=== PATIENT | male | born 1945 | race Caucasian/White ===

== ENCOUNTER 2016-09-28 21:05 | Emergency (ER) | payer OTHER ==
[~2016-09-28] VITALS: Ht 177.8 cm; Wt 140.7 kg
[~2016-09-28 21:05] MED LIST: ALBUAER2; CRD4; DRV100; FLVHFA110
[2016-09-28 21:07] VITALS: TEMP 36.5; Ht 177.8 cm; Wt 140.7 kg
--- NOTE | 2016-09-28 22:03 | DIAGNOSTIC IMAGING REPORT ---
LEFT KNEE 3 VIEWS CLINICAL HISTORY: Left knee pain. FINDINGS: AP, crosstable lateral, and sunrise views of left knee are obtained. No prior studies are available for comparison at the time of dictation. The skeletal structures are osteopenic. No fracture is seen. There is moderate degenerative joint space narrowing at the patellofemoral articulation. Mild joint space narrowing is seen in the medial and lateral compartments. There are small marginal osteophytes and patellar enthesophytes. Chondrocalcinosis is noted in the medial and lateral compartments. There is no large joint effusion. The overlying soft tissues are normal as. Numerous superficial venous varicosities are identified. IMPRESSION: 1. No acute bony abnormality is identified. 2. Osteopenia with chondrocalcinosis and arthritic change as above. 3. Numerous superficial venous varicosities are identified. Electronically signed by: Oniel Atkinson M.D. 09/28/2016 10:02 PM Dictated Date/Time: 09/28/2016 10:00 PM
[2016-09-28] MEDS ORDERED: MOME200A INH (22:05)
[2016-09-28] MEDS ORDERED: FLUT0.15 NAE (22:05)
[2016-09-28] MEDS ORDERED: ALBUAER INH (22:05)
[2016-09-28] MEDS ORDERED: FINA5TAB PO (22:05)
[2016-09-28] MEDS ORDERED: MONT1TAB3 PO (22:05)
[2016-09-28 22:11] LABS: BUN/CREATININE RATIO 16.5 (10-20); CREATININE 0.81 mg/dl (0.60-1.40); POTASSIUM 3.8 mmol/L (3.5-5.1)
[2016-09-28 22:13] LABS: BASO % 0.5 %; BASO ABS # 0.03 K/uL (0-0.2); COMPLETE YES; EOS % 4.9 %; HEMATOCRIT 41.4 % (42-52); IG% 0.2 %; LYMPH ABS # 1.82 K/uL (1.2-3.4); MEAN CORPUSCULAR HEMOGLOBIN 30.2 pg (25-34); MEAN CORPUSCULAR HGB CONC 32.9 g/dl (32-36); MEAN PLATELET VOLUME 10.2 fL (7.4-10.4); MONO % 8.7 %; NEUT % 54.7 %; PLATELET COUNT 152 K/uL (130-400); WHITE BLOOD COUNT 5.88 K/uL (4.8-10.8)
[2016-09-28 22:21] LABS: CALCIUM 8.6 mg/dl (8.5-10.1)
--- NOTE | 2016-09-28 22:30 | DIAGNOSTIC IMAGING REPORT ---
ADDENDUM ULTRASOUND BILATERAL LOWER EXTREMITY VENOUS CLINICAL HISTORY: Lower extremity edema. COMPARISON STUDY: No priors. TECHNIQUE: Real-time, grayscale, and color Doppler sonography of the deep veins of the right and left lower extremity was performed from the inguinal crease to the calf. Compression and augmentation were utilized. FINDINGS: There is no sonographic evidence of deep venous thrombosis identified in the right or left lower extremity. The common femoral, superficial femoral, and popliteal veins are patent and normally compressible bilaterally. The greater saphenous vein and the profunda femoris vein at the junction with the common femoral vein are clear in both legs. The visualized calf veins are patent bilaterally. IMPRESSION: There is no sonographic evidence of deep venous thrombosis identified in the right or left lower extremity. Electronically signed by: Oniel Atkinson M.D. 09/28/2016 10:54 PM Dictated Date/Time: 09/28/2016 10:54 PM ORIGINAL REPORT ULTRASOUND LEFT LOWER EXTREMITY VENOUS CLINICAL HISTORY: Lower extremity edema. COMPARISON STUDY: No priors. TECHNIQUE: Real-time, grayscale, and color Doppler sonography of the deep veins of the left lower extremity was performed from the inguinal crease to the calf. Compression and augmentation were utilized. FINDINGS: There is no sonographic evidence of deep venous thrombosis identified in the left lower extremity. The common femoral, superficial femoral, and popliteal veins are patent and normally compressible. The greater saphenous vein and the profunda femoris vein at the junction with the common femoral vein are clear. The visualized calf veins are patent. IMPRESSION: There is no sonographic evidence of deep venous thrombosis identified in the left lower extremity. Electronically signed by: Oniel Atkinson M.D. 09/28/2016 10:29 PM Dictated Date/Time: 09/28/2016 10:29 PM
[2016-09-28 22:35] VITALS: BP 150/60; PULSE 72; O2SAT 95
--- NOTE | 2016-09-28 23:03 | EMERGENCY ROOM VISIT NOTE ---
ED Visit Note First contact with patient: 21:21 This Patient was discussed with the physician health care assistant, ALIS Calzada. The pertinent historical and physical exam findings were confirmed. I agree with the studies ordered and with the interpretations of these studies. I agree with the disposition and care plan.
--- NOTE | 2016-09-29 03:26 | EMERGENCY ROOM VISIT NOTE ---
History First contact with patient: 21:21 Chief Complaint: SWELLING TO EXTREMITY Stated Complaint: B/L LEG SWELLING AND RED SPOTS History of Present Illness The patient is a 71 year old male who presents to the Emergency Room with complaints of left knee pain with bilateral calf pain and redness for the past several days that is steadily getting worse. Patient as had phlebitis in the past and symptoms feel similar. 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 Patient had knee pain for quite some time. No fall. No trauma. He discuss pain as aching, ranging in severity 4-10. Nothing makes it better or worse. Patient denies chest pain , dyspnea, fever, chills, numbness, tingling, abdominal pain or any other medical complaints. Patient does not smoke. No prior DVT. Past Medical/Surgical History Cholecystectomy, asthma, thyroid disorder, BPH Social History Smoking Status: Never Smoker Smokeless Tobacco Use: No Alcohol Use: none Drug Use: none Marital Status: Housing Status: lives with family Occupation Status: employed Current/Historical Medications Scheduled Finasteride (Proscar), 5 MG PO DAILY Fluticasone Propionate (Nasal) (Flonase Allergy Relief), 2 SPRAYS PADMINI DAILY Montelukast Sodium (Singulair), 10 MG PO DAILY Scheduled PRN Albuterol Sulfate (Proventil Hfa), 2 PUFF INH Q4 PRN for SOB/Wheezing Mometasone Furoate-Formoterol (Dulera 200/5 Mcg), 2 AER INH BID PRN for SOB/ Wheezing Allergies Coded Allergies: No Known Allergies (Verified Allergy, Unknown, 05/02/06) Physical Exam Vital Signs Date Time Temp Pulse Resp B/P Pulse Ox O2 Delivery O2 Flow Rate FiO2 09/28/16 23:05 09/28/16 22:35 72 18 150/60 95 Room Air 09/28/16 21:37 160/64 09/28/16 21:07 36.5 85 18 189/83 94 Room Air Pain Rating (0-10): 0 Physical Exam VITALS: Vitals are noted on the nurse's note and reviewed by myself. Vital signs hypertensive GENERAL: Pleasant male, in no acute distress, nondiaphoretic, well-developed well-nourished. SKIN: The skin was without rashes, or bruising. There is no tenting of the skin. Capillary reflex less than 2 seconds. HEAD: Normocephalic atraumatic. EARS: External auditory canals clear, tympanic membranes pearly simpson without erythema or effusion bilaterally. EYES: Pupils equal round and reactive to light and accommodation. Conjunctivae without injection, sclerae without icterus. Extraocular movements intact. NOSE: Patent, turbinates without inflammation or discharge. MOUTH: Mucous membranes moist. Pharynx without erythema or exudate. Uvula midline. Airway patent. Tongue does not deviate. NECK: Supple without nuchal rigidity. No lymphadenopathy. No thyromegaly. Cervical spine is nontender. No JVD. HEART: Regular rate and rhythm LUNGS: Clear to auscultation bilaterally without wheezes, rales or rhonchi. No dullness to percussion. No retractions or accessory muscle use. ABDOMEN: Positive bowel sounds x 4. Normal tympanic percussion. Soft, nontender, without masses or organomegaly. Arora sign negative. No guarding or rebound tenderness. MUSCULOSKELETAL: No muscle atrophy, noted. Left knee full range of motion with minimal discomfort, negative La's, negative drawers. Medial aspects of both calfs with phlebitis presents with negative Homans sign. Pedal pulses + 2 equal present bilaterally. NEURO: Patient was alert and oriented to person place and time. Normal sensation to light and sharp touch. No focal neurological deficits. Medical Decision & Procedures Laboratory Results 09/28/16 21:45 Red Blood Count 4.50, Mean Corpuscular Volume 92.0, Mean Corpuscular Hemoglobin 30.2, Mean Corpuscular Hemoglobin Concent 32.9, Mean Platelet Volume 10.2, Neutrophils (%) (Auto) 54.7, Lymphocytes (%) (Auto) 31.0, Monocytes (%) (Auto) 8.7, Eosinophils (%) (Auto) 4.9, Basophils (%) (Auto) 0.5, Neutrophils # (Auto) 3.22, Lymphocytes # (Auto) 1.82, Monocytes # (Auto) 0.51, Eosinophils # (Auto) 0.29, Basophils # (Auto) 0.03 09/28/16 21:45 Test 09/28/16 21:45 White Blood Count 5.88 K/uL (4.8-10.8) Red Blood Count 4.50 M/uL (4.7-6.1) Hemoglobin 13.6 g/dL (14.0-18.0) Hematocrit 41.4 % (42-52) Mean Corpuscular Volume 92.0 fL (80-100) Mean Corpuscular Hemoglobin 30.2 pg (25-34) Mean Corpuscular Hemoglobin Concent 32.9 g/dl (32-36) Platelet Count 152 K/uL (130-400) Mean Platelet Volume 10.2 fL (7.4-10.4) Neutrophils (%) (Auto) 54.7 % Lymphocytes (%) (Auto) 31.0 % Monocytes (%) (Auto) 8.7 % Eosinophils (%) (Auto) 4.9 % Basophils (%) (Auto) 0.5 % Neutrophils # (Auto) 3.22 K/uL (1.4-6.5) Lymphocytes # (Auto) 1.82 K/uL (1.2-3.4) Monocytes # (Auto) 0.51 K/uL (0.11-0.59) Eosinophils # (Auto) 0.29 K/uL (0-0.5) Basophils # (Auto) 0.03 K/uL (0-0.2) RDW Standard Deviation 46.0 fL (36.4-46.3) RDW Coefficient of Variation 13.7 % (11.5-14.5) Immature Granulocyte % (Auto) 0.2 % Immature Granulocyte # (Auto) 0.01 K/uL (0.00-0.02) Anion Gap 5.0 mmol/L (3-11) Est Creatinine Clear Calc Drug Dose 121.8 ml/min Estimated GFR () 105.1 Estimated GFR (Non- 90.7 BUN/Creatinine Ratio 16.5 (10-20) Calcium Level 8.6 mg/dl (8.5-10.1) ED Course Prior records reviewed and summarized above. Triage Nursing notes reviewed. Additional history obtained from the family. The patient's history was concerning for swelling and pain in the leg. Differential diagnosis: Etiologies such as DVT, musculoskeletal, infection, joint effusion, trauma, lymphedema, idiopathic, CHF, as well as others were entertained.. Physical examination: The physical examination revealed no signs of infection. Neurovascularly intact. ER treatment provided: SPENCER pal. Patient declined medication On reassessment the patient felt better. Diagnostics interpreted by me: The labs revealed no worrisome leukocytosis or electrolyte abnormality besides mild hyperglycemia without DKA Imaging studies: LEFT KNEE 3 VIEWS CLINICAL HISTORY: Left knee pain. FINDINGS: AP, crosstable lateral, and sunrise views of left knee are obtained. No prior studies are available for comparison at the time of dictation. The skeletal structures are osteopenic. No fracture is seen. There is moderate degenerative joint space narrowing at the patellofemoral articulation. Mild joint space narrowing is seen in the medial and lateral compartments. There are small marginal osteophytes and patellar enthesophytes. Chondrocalcinosis is noted in the medial and lateral compartments. There is no large joint effusion. The overlying soft tissues are normal as. Numerous superficial venous varicosities are identified. IMPRESSION: 1. No acute bony abnormality is identified. 2. Osteopenia with chondrocalcinosis and arthritic change as above. 3. Numerous superficial venous varicosities are identified. Exam was negative for DVT per radiology This appears to be consistent with phlebitis. Patient was fitted with SPENCER hose and advised to wear them. He was advised to follow-up family care in a few days or here in the ER sooner for severe pain, chest pain, dyspnea, numbness, tingling, worsening signs or symptoms or as needed. Patient had ongoing knee pain for quite some time. He is advised to follow-up with orthopedics or his family care doctor. By the evaluation outlined above emergent etiologies such as DVT, septic joint, trauma, infection, CHF, as well as others were deemed relatively unlikely. He was neurovascularly and neurologically intact. He was well-appearing. The pt informed about the findings as listed above. All questions were answered and pleased with the treatment. Return instructions were outlined and the patient was discharged in stable condition. Case reviewed with my attending Referral: The patient was referred back to their primary care physician for follow-up in 2 to 3 days for a recheck of the current condition. 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 Ibuprofen(Motrin, Advil) may be used for fever or pain. Use 600mg every six hours as needed. Take with food. Avoid using more than 2400mg in a 24 hour period. Do not use 2400mg per day for more than three consecutive days without physician direction. Prolonged inappropriate use can lead to stomach upset or ulcers. (AND/OR) Acetaminophen(Tylenol) may be used for fever or pain. Use 1000mg every six hours as needed. Avoid using more than 3000mg in a 24 hour period. Rest and drink plenty of fluids as tolerated. Continue current medications. Avoid strenuous activities and anything that worsens your pain. Resume normal activities once your symptoms resolve. Return to the ER immediately for worsening or persistent leg pain, abdominal pain, vomiting, fevers, chest pains, difficulty breathing, worsening of your condition, or as needed. Follow up with your primary physician in 2-3 days for a recheck of your current condition. Problem Qualifiers
[2017-02-17] MEDS ORDERED: CLR10 PO (14:43)
== END 2016-09-28 23:05 | disposition home or self-care (01) ==
LOC: C.EDB 21:06 → C.EDA 23:05
DX: I80.3 Phlebitis and thrombophlebitis of lower extremities, unspecified (principal); M08.462 Pauciarticular juvenile rheumatoid arthritis, left knee; J45.909 Unspecified asthma, uncomplicated; E07.9 Disorder of thyroid, unspecified; N40.0 Benign prostatic hyperplasia without lower urinary tract symptoms; R60.0 Localized edema

== ENCOUNTER → 2016-11-26 | Outpatient (CLI) | payer OTHER ==
[~2016-11-26] MED LIST changes: +ALBUAER INH; -ALBUAER2; +CLR10 PO; -CRD4; -DRV100; +FINA5TAB PO; +FLUT0.15 NAE; -FLVHFA110; +MOME200A INH; +MONT1TAB3 PO; +NAPR1TAB9 PO; +OXYC-57 PO
--- NOTE | 2016-11-26 13:42 | DIAGNOSTIC IMAGING REPORT ---
LEFT HIP INJECTION UNDER FLUOROSCOPIC GUIDANCE CLINICAL HISTORY: Left hip pain. Degenerative joint disease. Steroid injection. PROCEDURE: The risks, benefits, and alternatives to the procedure were discussed with the patient. Written informed consent was obtained. The patient was placed supine on the fluoroscopy table, and a left hip injection was performed under fluoroscopic guidance. The area was prepped and draped in the usual sterile fashion. The skin and soft tissues anesthetized with local 1% lidocaine. The left hip joint was accessed utilizing a 22-gauge needle, and intra-articular positioning was confirmed by injecting a small volume of Optiray 300. The prescribed dosage of 2 cc of betamethasone and 8 cc of 0.5% bupivacaine was injected into the joint space. The procedure was well tolerated and without immediate complication. FLUOROSCOPY TIME: 8 seconds. IMPRESSION: Successful steroid injection of the left hip under fluoroscopic guidance. Electronically signed by: Oniel Atkinson M.D. 11/26/2016 1:40 PM Dictated Date/Time: 11/26/2016 1:39 PM
== END | disposition home or self-care (01) ==
LOC: C.RADBC 12:32
PROVIDERS: ATTEND Orthopaedic Surgery
DX: M25.9 Joint disorder, unspecified (principal)

== ENCOUNTER → 2017-01-31 | Outpatient (CLI) | payer OTHER ==
--- NOTE | 2017-01-31 11:13 | DIAGNOSTIC IMAGING REPORT ---
LUMBAR SPINE W/O CONTRAST HISTORY: Back pain SPINAL STENOSIS TECHNIQUE: Multiplanar multisequence MRI of the lumbar spine was performed without the use of contrast. COMPARISON: None. FINDINGS: For the purpose of the report the L5-S1 disc space will be located on axial image 3135. Signal characteristics of the vertebral bodies are unremarkable. Bone marrow hemangioma of L1. Moderate degenerative disc change throughout the entire lumbar region. L1-L2: No significant central canal or neural foraminal narrowing. L2-L3: Minimal broad-based disc bulge. Minimal impact anterior thecal sac. L3-L4: Mild broad-based disc bulge. Mild narrowing of the neuroforamina bilaterally. Minimal impact anterior thecal sac. L4-L5: Moderate narrowing of the neuroforamina bilaterally primarily secondary to osteophytic reaction. L5-S1: Findings consistent with a prior laminectomy. Minimal broad-based disc bulge. Minimal narrowing of the neuroforamina bilaterally. IMPRESSION: 1. Findings consistent with a posterior laminectomy and fusion at L5-S1. 2. Mild broad-based disc bulge L3-L4 with mild narrowing of the neuroforamina bilaterally. 3. Moderate osteophytic narrowing of the neuroforamina bilaterally at L4-L5. The above report was generated using voice recognition software. It may contain grammatical, syntax or spelling errors. Electronically signed by: William Almazan M.D. 01/31/2017 11:12 AM Dictated Date/Time: 01/31/2017 11:06 AM
== END | disposition home or self-care (01) ==
LOC: C.MRIBC 10:17
PROVIDERS: ATTEND Orthopaedic Surgery Orthopaedic Surgery of the Spine
DX: M48.06 Spinal stenosis, lumbar region (principal)

== ENCOUNTER 2017-02-24 08:17 | Observation (INO) | payer OTHER ==
[2017-02-17 14:44] VITALS: BMI 44.0
--- NOTE | 2017-02-17 15:14 | PAT Medication Instructions ---
Service Date Feb 17, 2017. Current Home Medication List Albuterol Sulfate (Proventil Hfa), 2 PUFF INH Q4 PRN for SOB/Wheezing Fluticasone Propionate (Nasal) (Flonase Allergy Relief), 2 SPRAYS PADMINI DAILY Loratadine (Claritin), 10 MG PO DAILY Mometasone Furoate-Formoterol (Dulera 200/5 Mcg), 2 AER INH BID PRN for SOB/ Wheezing Medication Instructions For Your Scheduled Surgery - Hold the following medications the morning of surgery: Loratadine (Claritin), 10 MG PO DAILY - Take the following medications the morning of surgery: Mometasone Furoate-Formoterol (Dulera 200/5 Mcg), 2 AER INH BID PRN for SOB/ Wheezing (if needed) Albuterol Sulfate (Proventil Hfa), 2 PUFF INH Q4 PRN for SOB/Wheezing (if needed , AND BRING WITH YOU THE MORNING OF THE SURGERY) Fluticasone Propionate (Nasal) (Flonase Allergy Relief), 2 SPRAYS PADMINI DAILY - Take the following medications as scheduled the night before surgery: Mometasone Furoate-Formoterol (Dulera 200/5 Mcg), 2 AER INH BID PRN for SOB/ Wheezing Albuterol Sulfate (Proventil Hfa), 2 PUFF INH Q4 PRN for SOB/Wheezing If you have any questions please call us at [phone] or [phone] or [phone]
[2017-02-17 16:07] LABS: BASO % 0.5 %; BASO ABS # 0.03 K/uL (0-0.2); COMPLETE YES; EOS % 4.5 %; HEMATOCRIT 42.4 % (42-52); IG% 0.2 %; LYMPH % 33.7 %; LYMPH ABS # 1.86 K/uL (1.2-3.4); MEAN CELL VOLUME 89.5 fL (80-100); MEAN CORPUSCULAR HEMOGLOBIN 29.7 pg (25-34); MEAN CORPUSCULAR HGB CONC 33.3 g/dl (32-36); MEAN PLATELET VOLUME 10.4 fL (7.4-10.4); MONO % 6.3 %; NEUT % 54.8 %; PLATELET COUNT 141 K/uL (130-400); RED BLOOD COUNT 4.74 M/uL (4.7-6.1); WHITE BLOOD COUNT 5.52 K/uL (4.8-10.8)
[2017-02-17 16:14] LABS: BUN/CREATININE RATIO 29.3 (10-20); CALCIUM 8.5 mg/dl (8.5-10.1); CREATININE 0.64 mg/dl (0.60-1.40); POTASSIUM 4.4 mmol/L (3.5-5.1)
[2017-02-17 16:18] LABS: PARTIAL THROMBOPLASTIN RATIO 1.1; PROTHROMBIN TIME (PATIENT) 10.7 SECONDS (9.0-12.0)
[2017-02-17 16:21] LABS: URINE APPEARANCE CLEAR (CLEAR); URINE BILIRUBIN NEG (NEG); URINE COLOR YELLOW; URINE NITRITE NEG (NEG); URINE SPECIFIC GRAVITY 1.023 (1.000-1.030); UROBILINOGEN NEG (NEG)
--- NOTE | 2017-02-17 16:48 | DIAGNOSTIC IMAGING REPORT ---
CHEST PREADMISSION(PA/LAT) HISTORY: 71 years-old Male PAT preadmission exam without acute chest complaints COMPARISON: None available TECHNIQUE: Frontal and lateral views of the chest FINDINGS: Cardiomediastinal and hilar silhouettes are within normal limits. There is atherosclerosis of the aorta. No pneumothorax, pleural effusion or focal airspace consolidation. Linear lucency the level of the right lung base suggest skinfold. There is minimal bibasilar atelectasis. Cholecystectomy clips are noted. The bones are grossly intact. IMPRESSION: 1. Linear lucency at the level of the right lung base suggests skinfold. No definite pneumothorax is identified. 2. The study is otherwise unremarkable. The above report was generated using voice recognition software. It may contain grammatical, syntax or spelling errors. Electronically signed by: Ish Nielsen M.D. 02/17/2017 4:47 PM Dictated Date/Time: 02/17/2017 4:45 PM
[2017-02-17 16:49] LABS: MANUAL MICROSCOPIC REQUIRED? NO; REVIEW REQ? NO
--- NOTE | 2017-02-21 16:23 | HISTORY & PHYSICAL EXAMINATION ---
DATE OF ADMISSION: 02/24/2017 CHIEF COMPLAINT: Back pain, lower extremity difficulty, paresthesias, numbness and tingling. He has spinal stenosis L3 down to S1. He has symptoms of claudication. Basically the 3, 4 and 5 nerve roots. He has no red flags of fevers, sweats, chills. Ongoing difficulty for multiple years, worsening over time. Failure of conservative measures. PAST MEDICAL HISTORY: Asthma, numbness, tingling, weakness. No diabetes, blood disorder or abnormal EKG. No history of kidney, renal, liver issues. No carcinoma history. No trouble with anesthesia. Negative for smoking, negative for alcohol, negative for any type of illegal drugs. PAST SURGICAL HISTORY: Include prior lumbar spine surgery and thyroid. ALLERGIES: Negative. MEDICATIONS: Claritin and finasteride for enlarged prostate. REVIEW OF SYSTEMS: Denies blurred vision, double vision, tinnitus or vertigo, no chest pain, palpitations. No asthma, wheezing, shortness of breath. No nausea, vomiting, bowel and bladder incontinence. No fever, sweats, chills. Admits to back and lower extremity difficulty, paresthesias. OBJECTIVE: GENERAL: He is an alert, oriented gentleman. He is 71, 5 feet 10 inches. He is 200 pounds. He is in no terrible distress. HEENT: Normal. CARDIAC: Normal S1, S2, no S3. VITAL SIGNS: Blood pressure 130/80, pulse of 80. LUNGS: Clear to auscultation. No rales, rhonchi or wheezing. ABDOMEN: Soft, nontender. Bowel sounds present in all quadrants. NEUROLOGIC: Slight numbness and tingling in the 4 and 5 nerve root distribution, 5/5 strength. IMAGES: Demonstrate spinal stenosis L3 to the sacrum. IMPRESSION: Spinal stenosis without instability. DISPOSITION: Includes a lumbar laminectomy L3-S1 lumbar spine, which is L3-L4, L4-L5 and L5-S1.
[2017-02-24] VITALS (7 sets, daily range): BP systolic 124–195; BP diastolic 77–91; PULSE 76–91; TEMP 36.1–36.7; O2SAT 90–97; Ht 177.8 cm; Wt 138.6 kg
[~2017-02-24] VITALS: Ht 177.8 cm; Wt 138.6 kg
[~2017-02-24 08:17] MED LIST changes: +ATROPINE SULFATE 0.1 MG/ML 5ML SYR IV PRN; +CEFAZOLIN 3000 MG/65 ML D5W 65 ML IV SCH; +DEXAMETHASONE SOD INJ 4 MG/ML VIAL ONE; +EpHEDrine SULFATE INJ 50 MG/ML AMP IV PRN; +FENTANYL CITRATE INJ 50 MCG/1 ML 2 ML VIAL IV PRN; +FENTANYL CITRATE INJ 50 MCG/1 ML 2 ML VIAL ONE; -FINA5TAB PO; +HYDROmorphone INJ 1 MG/ML SYR IV PRN; +HYDROmorphone INJ 2 MG/ML SYR/VIAL ONE; +LACTATED RINGER'S 1000ML 1,000 ML IV SCH; +LIDOCAINE HCL 2% 2 ML VIAL (20MG/ML) ONE; +MIDAZOLAM HCL 1 MG/ML 2ML VIAL ONE; -MONT1TAB3 PO; -NAPR1TAB9 PO; +NSS 1000ML IV SCH; +ONDANSETRON INJ 2 MG/ML 2 ML VIAL IV PRN; +ONDANSETRON INJ 2 MG/ML 2 ML VIAL ONE; -OXYC-57 PO; +PROPOFOL IV EMULSION 10 MG/ML 20 ML VIAL IV ONE
[2017-02-24] MEDS ORDERED: NAPR1TAB9 PO (08:44)
--- NOTE | 2017-02-24 10:38 | History & Physical Bridge Note ---
H&P Re-Evaluation Bridge Note: I have examined the patient, reviewed the History & Physical and in the interval since the performance of the History & Physical I have noted the following changes of clinical significance: No changes noted
[2017-02-24] MEDS ORDERED: GELATIN SPONGE SZ 100 ONE ×2 (10:39→12:06)
[2017-02-24] MEDS ORDERED: BACITRACIN 50000 UNIT VIAL ONE (10:39)
[2017-02-24] MEDS ORDERED: THROMBIN FOR SOLN 20000 UNIT KIT ONE (10:39)
[2017-02-24] MEDS ORDERED: VANCOMYCIN HCL 1000MG/20ML VIAL ONE (10:39)
[2017-02-24] MEDS ORDERED: BUPIVACAINE/EPINEPHRINE 0.5% MPF 1:200,000 30 ML VIAL ONE (10:40)
[2017-02-24] MEDS ORDERED: NEOSTIGMINE METHYLSULFATE 5 MG/5 ML SYR ONE (12:40)
[2017-02-24] MEDS ORDERED: GLYCOPYRROLATE INJ 0.2 MG/ML VIAL ONE (12:40)
--- NOTE | 2017-02-24 13:08 | [facility] Post Operative Brief Note ---
Immediate Operative Summary Operative Date Feb 24, 2017. Pre-Operative Diagnosis Spinal stenosis without instability Post-Operative Diagnosis Spinal stenosis without instability Procedure(s) Performed L3-L4, L4-L5, L5-S1 Laminectomy Surgeon Dr. Smith Planning Manager Surgeon(s) Genaro Rm PA-C Estimated Blood Loss 450ml Findings severe stenosis Specimens none per surgeon Complication(s) None Disposition Recovery Room / PACU
[2017-02-24] MEDS ORDERED: HYDROmorphone INJ 2 MG/ML SYR/VIAL IV PRN (13:15)
[2017-02-24] MEDS ORDERED: LORAZEPAM INJ 1 MG in SYRINGE 0 ML IV PRN (13:15)
[2017-02-24] MEDS ORDERED: ACETAMINOPHEN 325 MG TAB PO PRN (13:15)
[2017-02-24] MEDS ORDERED: OXYCODONE/ACETAMINOPHEN 5-325 TAB PO PRN ×2 (13:15)
[2017-02-24] MEDS ORDERED: MAGNESIUM HYDROXIDE SUSP 30 ML UDC PO PRN (13:15)
[2017-02-24] MEDS ORDERED: LORAZEPAM 1 MG TAB PO PRN (13:15)
[2017-02-24] MEDS ORDERED: PROMETHAZINE HCL INJ 12.5 MG in SODIUM CHLORIDE 0.9% 50ML 50 ML IV PRN (13:15)
[2017-02-24] MEDS ORDERED: METOCLOPRAMIDE HCL INJ 5 MG/ML 2 ML VIAL IV PRN (13:15)
[2017-02-24] MEDS ORDERED: ONDANSETRON INJ 2 MG/ML 2 ML VIAL IV PRN (13:15)
[2017-02-24] MEDS ORDERED: HYDROmorphone INJ 1 MG/ML SYR IV PRN (13:15)
--- NOTE | 2017-02-24 13:47 | DIAGNOSTIC IMAGING REPORT ---
INTRAOPERATIVE FLUOROSCOPIC IMAGE OF THE LUMBAR SPINE CLINICAL HISTORY: L3-S1 laminectomies. COMPARISON STUDY: Lumbar spine MRI January 31, 2017. Fluoroscopy time: 4 seconds. FINDINGS: Surgical retractors are noted. A multilevel lumbosacral laminectomy is noted. Exact level of laminectomies is difficult to determine on this examination. IMPRESSION: Lateral fluoroscopic image of the spine demonstrating multilevel lumbosacral laminectomy. Electronically signed by: Jorje Vargas M.D. 02/24/2017 1:46 PM Dictated Date/Time: 02/24/2017 1:43 PM
--- NOTE | 2017-02-24 13:57 | Anesthesiology Progress Note ---
Anesthesia Post Op Note Date & Time Feb 24, 2017 at 13:57 Vital Signs Pain Intensity: 0 Vital Signs Past 12 Hours Date Time Temp Pulse Resp B/P (MAP) Pulse Ox O2 Delivery O2 Flow Rate FiO2 02/24/17 13:50 36.2 78 20 156/78 96 Nasal Cannula 4 02/24/17 13:40 36.2 88 20 163/80 95 Nasal Cannula 4 02/24/17 13:30 75 20 160/77 95 Oxymask 10 02/24/17 13:20 86 20 145/70 95 Oxymask 10 02/24/17 13:11 36.6 96 20 175/88 95 Oxymask 10 02/24/17 08:46 36.5 77 20 195/91 (125) 94 Room Air Notes Mental Status: alert / awake / arousable, participated in evaluation Pt Amnestic to Procedure: Yes Nausea / Vomiting: adequately controlled Pain: adequately controlled Airway Patency, RR, SpO2: stable & adequate BP & HR: stable & adequate Hydration State: stable & adequate Anesthetic Complications: no major complications apparent
--- NOTE | 2017-02-24 15:09 | OPERATIVE REPORT ---
DATE OF OPERATION: 02/24/2017 PREOPERATIVE DIAGNOSIS: Spinal stenosis, lumbar spine, L3 to the sacrum. POSTOPERATIVE DIAGNOSIS: Same. PROCEDURE: Laminectomy, foraminotomy, partial facetectomy of the lumbar spine, L3-L4, L4-L5, and L5-S1. SURGEON: Dr. Smith. CAN STERILIZER: Genaro Rm PA-C. COMPLICATIONS: Zero. BLOOD LOSS: 450 mL COMORBIDITIES: Included morbid obesity with a BMI close to 48. DESCRIPTION OF PROCEDURE: The patient was taken to the operating room, a general intubated anesthetic provided to the patient, placed prone, scrubbed, prepped and draped sterile. We made a skin incision, fascial incision and dissected carefully down to the lamina, facet joints, transverse processes putting in a deep self-retaining retractor. I had to use revision strategies for significant scar tissue formation, old lamina arthritis that was embedding into his associated nerve roots. We were carefully and safely able to decompress the spinal canal and nerve roots were completely free at L3-L4, L4-L5 and L5-S1. I was pleased with the dissection. There were no apparent complications. We irrigated thoroughly, closed over some vancomycin powder with #1 Vicryl suture, 2-0 in the subcuticular layer, staple gun for skin, sterile dressing applied. This was all closed over Hemovac drain. Once again sponge and needle count correct at the close of the procedure. Blood loss 450 mL. No complications. I attest to the content of the Intraoperative Record and any orders documented therein. Any exception s are noted below.
[2017-02-24] MEDS ORDERED: IV FLUIDS COMPLETED PRN (15:15)
[2017-02-24] MEDS: SODIUM CHLORIDE 0.9% 1000ML 1,000 ML IV SCH (15:29)
[2017-02-24] MEDS: DEXAMETHASONE INJ 10 MG in SYRINGE 0 ML IV SCH ×2 (15:41→23:25)
[2017-02-24 15:48] LABS: HEMATOCRIT 39.6 % (42-52)
[2017-02-24] MEDS: CEFAZOLIN IV 2,000 MG in DEXTROSE 5% 50ML 50 ML IV SCH (18:30)
[2017-02-24] MEDS ORDERED: COUGH DROP (SUGAR FREE) LOZ 24 LOZ/1 BOX PO PRN (22:15)
[2017-02-24] MEDS ORDERED: NURSING VERBAL MED ORDER ONE (22:15)
[2017-02-25] MEDS: SODIUM CHLORIDE 0.9% 1000ML 1,000 ML IV SCH (02:09)
[2017-02-25] MEDS: CEFAZOLIN IV 2,000 MG in DEXTROSE 5% 50ML 50 ML IV SCH ×2 (02:09→10:46)
[2017-02-25 02:56] VITALS: BP 136/82; PULSE 88; TEMP 36.7; O2SAT 93
[2017-02-25] MEDS ORDERED: NURSING VERBAL MED ORDER ONE (05:45)
[2017-02-25] MEDS ORDERED: BISACODYL 5 MG TABEC PO PRN (06:00)
[2017-02-25] MEDS ORDERED: BISACODYL 10 MG SUPP PR PRN (06:00)
[2017-02-25 07:46] VITALS: BP 135/83; PULSE 81; TEMP 37; O2SAT 91
[2017-02-25] MEDS: LORATADINE 10 MG TAB PO SCH (08:34)
[2017-02-25] MEDS: FLUTICASONE PROPIONATE NA SPR 16 GM BTL NAE SCH (08:34)
[2017-02-25] MEDS: DEXAMETHASONE INJ 10 MG in SYRINGE 0 ML IV SCH ×3 (08:35→23:36)
[2017-02-25] MEDS: POLYETHYLENE (MIRALAX) 17 GM PACK PO SCH (08:35)
--- NOTE | 2017-02-25 09:04 | ORTHOPEDICS PROGRESS NOTE ---
DATE OF ADMISSION: 02/24/2017 SUBJECTIVE: Moderate complaints of back pain only, no lower extremity difficulties of significance. Denies fevers, sweats or chills. OBJECTIVE: VITAL SIGNS: Temperature 36.7, blood pressure is stable. Hemovac working. Moves all extremities and ambulatory. ASSESSMENT: Multiple level stenosis surgery in a 71-year-old obese individual. DISPOSITION: Try to get Fly up and ambulatory little bit more today. We will get rid of his Calzada catheter, capped off his IVs, tentative discharge for tomorrow the .
[2017-02-25 12:03] VITALS: BP 125/76; PULSE 73; TEMP 36.5; O2SAT 92
[2017-02-25 16:57] VITALS: BP 160/83; PULSE 81; TEMP 36.9; O2SAT 93
[2017-02-25 23:20] VITALS: BP 152/77; PULSE 85; TEMP 36.3; O2SAT 92
[2017-02-26 05:54] VITALS: BP 150/84; PULSE 79; TEMP 36.3; O2SAT 91
[2017-02-26] MEDS: POLYETHYLENE (MIRALAX) 17 GM PACK PO SCH (07:24)
[2017-02-26] MEDS: LORATADINE 10 MG TAB PO SCH (07:24)
[2017-02-26] MEDS: FLUTICASONE PROPIONATE NA SPR 16 GM BTL NAE SCH (07:24)
[2017-02-26] MEDS ORDERED: OXYC-57 PO (07:30)
--- NOTE | 2017-02-26 07:32 | Discharge Instructions ---
Discharge Instructions Date of Service Feb 26, 2017. Admission Reason for Admission: Spinal Stenosis Discharge Discharge Diagnosis / Problem: SAME ABOVE Discharge Goals Goal(s): Decrease discomfort, Improve function Activity Recommendations Activity Limitations: as noted below Lifting Limitations: until after follow-up appointment Exercise/Sports Limitations: until after follow-up appointment Shower/Bathe: tomorrow . Instructions / Follow-Up Instructions / Follow-Up MEDICATIONS: Please take your prescriptions as instructed at your pre-op appointment. SPECIAL CARE: The following information is intended to answer some of the common questions and concerns regarding your surgery. Each patient is an individual and receives individual counselling throughout the course of treatment, from diagnosis to surgery all the way through recovery. What follows is not an exhaustive list, but should be a useful guide to some of the common questions and concerns patients have regarding their surgeries. These are not provided to keep you from calling us; rather, they give you something accurate and concrete to reference as you recover from your procedure. If you need us, we are available to you. As always, if you are not sure about something, call us at [phone]. MEDICAL EMERGENCIES: For these conditions, call 911 or go to your local hospital-based Emergency Department - not [facility] or equivalent. * Paralysis * Severe chest pain or difficulty breathing * Swelling or redness of either leg Spine procedures can be rather complex and though complications are rare, they do occur. In such cases, effective advice regarding emergency situations cannot always be addressed over the telephone. You may be referred to the emergency department for more effective management of your problem. Activity Limitations: It is important to give your body time to heal, so please limit your activities : * In general, don't do anything that moves your spine too much. You should avoid contact sports, twisting or heavy lifting while you recover. * 5-10 pounds is all you should attempt to lift. * You should not plan on driving for approximately 3 weeks and you should avoid traveling more than 30-45 minutes at a time. Longer trips should be broken down with walking breaks spaced appropriately. * Physical therapy is not usually required. * Walking and good posture practices will help you recover and regain your function. * Avoid straining or sudden changes in position. * In general, the goal is to take it easy and recover. Don't cause any new problems. Just relax. Showers: * Do not take a bath, use a Jacuzzi or hot tub or otherwise submerge your incision. * It is usually safe to take a shower 4-5 days after your surgery. * Your incision does not require any special creams or ointments. * Simply clean it with soap and water, dry and re-dress with a clean bandage afterwards. Incision: * Keep incision clean, dry and protected until your first follow-up appointment. * Some amount of drainage and redness is normal. Any drainage should be fairly clear and not have a foul odor. * If you feel anything is wrong or you have excessive drainage, please call us. * Your stitches and michelle will be removed 10-14 days after your surgery. At the time of your first post-op visit. * Neck surgeries are typically closed with a suture underneath the skin. The steri-strips over the incision should be maintained until we see you in the office. Bracing: * You may be provided with a back or neck brace to encourage good posture and prevent injury. It will remind you not to do too much as you heal and will alert others to the fact that you have had a surgery. * Back braces may be removed for showers and when you are resting at home. They must be worn when you are walking around for any period of time or for travel. * For neck surgery, you will likely be provided with two cervical collars. The soft collar ([place] or foam rubber) is worn most commonly throughout the day and while sleeping. The plastic collar (provided at the hospital) is for showering/bathing. * Except while eating, collars should remain in place. More specifically, bracing is provided for a purpose and should be worn. * Please obtain your brace or collars prior to your operation and bring them to the hospital with you on the day of surgery. * You should also bring your collars to your post-op appointment with Dr. Smith. You should always take good care of your body and practice healthy habits, especially following surgery. You should: * Follow your doctor's treatment plan * Sit and stand properly with good posture (ears over shoulders, shoulders over hips) Don't slouch * Learn to lift correctly * Exercise regularly (low-impact aerobic exercise is especially good, but check with your doctor first) * Generally, be up and walking for 5-10 minutes at a time at least 3-4 times per day from the day you get home * Increasing walking to tolerance until you can walk for 20-30 minutes at a time * Attain and maintain a healthy body weight * Eat healthy foods ( a well-balanced, low-fat diet rich in fruits and vegetables) and get enough calcium * Avoid excessive use of alcohol When to call our office - If you notice any of the following: * Increased pain not relieve by pain medicine * Fevers greater then 100 degrees F, chills or flu symptoms * Increased redness around incision * Drainage from the incision that is not clear * Any foul smelling drainage * Swelling or fluid collection beneath the skin Miscellaneous: * In the hospital, you may be given a walker or cane for support while walking. These are temporary needs and are intended to prevent injuries due to falls. You may discontinue them when you feel strong and steady enough on your feet. * Sleep in a comfortable position. We find that many patients find a lounge chair or recliner with several pillows to be beneficial in the early post-operative period. * The support stockings should be used for 7-10 days and may be discontinued when you are back to walking more and conducting usual household activities. No problem is insignificant. We are here to help you and get you well. Contact us at [phone]. Definitions: Foraminotomy: If part of the disc or a bone spur (osteophyte) is pressing on a nerve as it leaves the vertebra (through an exit called the foramen), a foraminotomy may be done. Otomy means "to make an opening." A foraminotomy is making the opening of the foramen larger, so the nerve can exit without being compressed. Laminotomy: Similar to the foraminotomy, a laminotomy makes a larger opening, this time in your bony plate protecting your spinal canal and spinal cord (the lamina). The lamina may be pressing on your nerve, so the surgeon may make more room for the nerves using a laminotomy. Laminectomy: Sometimes, a laminotomy is not sufficient. The surgeon may need to remove all or part of the lamina. This procedure is called a laminectomy. This can often be done at many levels without any harmful effects. Current Hospital Diet Patient's current hospital diet: Regular Diet Discharge Diet Recommended Diet: Regular Diet Procedures Procedures Performed: L3-L4, L4-L5, L5-S1 Laminectomy Pending Studies Studies pending at discharge: no Medical Emergencies . Who to Call and When: Medical Emergencies: If at any time you feel your situation is an emergency, please call 911 immediately. . Non-Emergent Contact Non-Emergency issues call your: Primary Care Provider . "Provider Documentation" section prepared by Genaro Rm. . VTE Core Measure Inpt VTE Proph given/why not?: Treatment not indicated
[2017-02-26 08:26] VITALS: BP 150/84; PULSE 79; TEMP 36.3; O2SAT 91
[2017-02-26 09:30] VITALS: BP 144/87; PULSE 93
== END 2017-02-26 13:35 | disposition home or self-care (01) ==
LOC: C.ACU 08:17 → C.3E 13:11 → ENRESERV 13:28
PROVIDERS: ADMIT Orthopaedic Surgery Orthopaedic Surgery of the Spine; ATTEND Orthopaedic Surgery Orthopaedic Surgery of the Spine
DX: M48.061 Spinal stenosis, lumbar region without neurogenic claudication (principal); J45.909 Unspecified asthma, uncomplicated

== ENCOUNTER → 2017-04-17 | Outpatient (CLI) | payer OTHER ==
[~2017-04-17] MED LIST changes: -ATROPINE SULFATE 0.1 MG/ML 5ML SYR IV PRN; -CEFAZOLIN 3000 MG/65 ML D5W 65 ML IV SCH; -DEXAMETHASONE SOD INJ 4 MG/ML VIAL ONE; -EpHEDrine SULFATE INJ 50 MG/ML AMP IV PRN; -FENTANYL CITRATE INJ 50 MCG/1 ML 2 ML VIAL IV PRN; -FENTANYL CITRATE INJ 50 MCG/1 ML 2 ML VIAL ONE; -HYDROmorphone INJ 1 MG/ML SYR IV PRN; -HYDROmorphone INJ 2 MG/ML SYR/VIAL ONE; -LACTATED RINGER'S 1000ML 1,000 ML IV SCH; -LIDOCAINE HCL 2% 2 ML VIAL (20MG/ML) ONE; -MIDAZOLAM HCL 1 MG/ML 2ML VIAL ONE; +NAPR1TAB9 PO; -NSS 1000ML IV SCH; -ONDANSETRON INJ 2 MG/ML 2 ML VIAL IV PRN; -ONDANSETRON INJ 2 MG/ML 2 ML VIAL ONE; +OXYC-57 PO; -PROPOFOL IV EMULSION 10 MG/ML 20 ML VIAL IV ONE
--- NOTE | 2017-04-18 06:06 | PAP/PSG TECHNICIAN REPORT ---
[facility] Fur Comber Polysomnogram Report Study name: None Report date: 04/18/2017 Study date: 04/17/2017 Referring Physician: Dr. Kirsten Perez M.D. Name: MYRANDA CUETO Interpreting Physician: Yusuf Kemp M.D. Date of : 1945 Fur Comber: Marisela Rodriguez RPSGT. Sex: Male Age: 71 Study Type: PSG Weight: 306 lbs 15.75 in Height: 71 years, Height 5' 10" Neck Circum: BMI: 43.9 Medications: ALBUTEROL SULFATE 108 ( 90 BASE), DICLOFENAC SODIUM 75 MG, DULERA 200-5 MCG/ACT, MONTELUKAST 10 MG, FLUTICASONE 50 MCG, FINASTERIDE 5 MG, CALCIUM CARBONATE 750 MG, CALCITRIOL 0.5 MCG Patient History 71 yr-old male here for a baseline study. He has had a home sleep test in the past. He did not trust the results and could not tolerate CPAP or BiPAP. He states that he does not think he has sleep apnea and feels as though he has no symptoms of it. His [place] scale is 0. The test was started on room air. ETCO2 testing is included in this study. Room 3 Parameters Monitored NPSG: E1-M2, E2-M1, Fp1-M2, Fp2-M1, F3-M2, F4-M2, F4-M1, C3-M2, C4-M2, C4-M1, O1-M2, O2-M2, O2-M1, T3-M2, T4-M1, P3-M2, P4-M1, CHIN1, CHIN2, HR, EKG, Legs, PFLOW, SNOR, FLOW, CFLOW, Tidal Volume, THOR, ABDO, SpO2, PLTH, CPRESS, ETCO2 Wave, ETCO2, pH Sleep Architecture Sleep Stages Time at Lights Off 10:59:37 PM STAGES Time (min.) TST (%) Time at Lights On 5:28:07 AM Wake 161.5 -- Total Recording Time (TRT) 388.50 min. N1 56.0 25 Total Sleep Period (TSP) 381.0 min. N2 111.5 49 Total Sleep Time (TST) 227.0min. N3 3.5 2 Awake Time 161.5 min. REM 56.0 25 Wake after Sleep Onset 154.0 min. Sleep Efficiency (SE) 58 % Sleep Onset Latency (GEORGE) 7.5 min. Number of Stage 1 Shifts None Awakenings 12 Stage Changes 88 Number of REM periods 6 REM 56.0 25 REM Latency 167.5 min. NREM 171.0 75 Body Position Analysis Supine Right Left Side Prone Vertical Total Sleep Time (min.) 388.5 0.0 0.0 0.00 0.0 0.0 Total Sleep Time (%) 100% 0% 0% 0 0% N/A% Total Sleep Time REM (min.) 56.0 0.0 0.0 None 0.0 0.0 Total Sleep Time NREM (min.) 171.0 0.0 0.0 None 0.0 0.0 Intermittent Wake (min.) 161.5 0.0 0.0 None 0.0 0.0 Total Sleep Period (%) 100% None None None None None Arousals Myoclonus (PLM) * Events Count Index Events Count Index Spontaneous 15 4 Events Awake (PLMW) 205 76.2 Respiratory 34 9.8 Events Asleep w/ Arousal (PLMA) 36 9.5 PLM 35 10 Events Asleep w/o Arousal (PLMS) 218 57.6 Snoring 6 2 Total Asleep 254 67.1 Total 90 24 Total 459 71 Respiratory Analysis * CA OA MA CH H RERA Total Count 17 23 12 0 165 1 217 Index 4.5 6.1 3.2 0 43.6 0 57.6 Mean Duration 15.7 20.1 34.8 0.00 20.2 16.4 20.7 Longest Duration 27.2 36.5 55.6 0.00 55.6 16.4 55.6 Respiratory Event Summary Total Supine ~Supine Right Left Prone REM NREM Apneas Count 52 52 N/A N/A N/A N/A 21 31 Index 13.7 14 N/A N/A N/A N/A 23 11 Hypopneas (4% Desat) Count 165 165 N/A N/A N/A N/A 39 126 Index 43.6 43.6 N/A N/A N/A N/A 41.8 44.2 Apneas & All Hypopneas Count 217 217 N/A N/A N/A N/A 60 157 Index 57.4 57 N/A N/A N/A N/A 64.3 55.1 Respiratory Events (Tool Crib Lead+All Hyp+RERA) Count 217 218 N/A N/A N/A N/A 60 157 Index 57.6 58 N/A N/A N/A N/A 64.3 55.4 Respiratory Related Arousal Count 34 218 N/A N/A N/A N/A 10 27 Index 9.8 10 N/A N/A N/A N/A 11 9 Snoring Analysis Supine Right Left Prone REM NREM Total Snore duration 26.2 min Snores count 1,160 N/A N/A N/A 105 1,055 1,160 Snore mean duration 1.4 Sec Snores index 307 N/A N/A N/A 112.5 370.2 306.6 TST with snoring (%) 11.5% SpO2 Analysis Total REM NREM Awake <50% 0.0 min. 0.0 min. 0.0 min. 0.0 min. 51 - 60% 0.0 min. 0.0 min. 0.0 min. 0.0 min. 61 - 70% 9.3 min. 8.4 min. 0.4 min. 0.5 min. 71 - 80% 19.8 min. 18.4 min. 1.1 min. 0.3 min. 81 - 90% 203.4 min. 20.4 min. 129.9 min. 53.0 min. 91 - 100% 114.8 min. 8.7 min. 39.6 min. 66.5 min. Average 88 81 89 91 Minimum SpO2 61 61 64 65 Desaturation Event Index 42.2 87.9 62.5 5.2 # Desat. Events below 89% 253 77 169 7 Time(%) with Saturation below 89% 39.1 12.3 23.6 3.1 Time(min.) with Saturation below 89% 135.7 42.9 82.0 10.9 Heart Rate Analysis End Tidal CO2 Analysis Min (bpm) Max (bpm) Average (bpm) TSP (mins) % of TSP Awake 63 103 81 Above 55 mmHg 0.0 0.0 NREM 50 107 76 50-55 mmHg 0.0 0.0 REM 55 104 79 45-50 mmHg 0.0 0.0 Overall 50 107 77 40-45 mmHg 1.7 0.8 35-40 mmHg 69.4 30.6 30-35 mmHg 55.4 24.4 Average ETCO2 0.1 Supplemental O2 Values Minimum O2 level: None Value Start Time End Time Fur Comber Comments Mr. Cueto slept only in the supine position. Cardiac arrhythmias were noted (please refer to the printouts). PLMs were noted. No bruxism noted. Snoring was noted and scored as a 3 on a scale of 1 through 5. (0=no snoring, 5=snoring loud enough to be heard through a closed door or down the ber[address] way). He awoke to use the restroom five times during the night. Mr. Cueto stated that he slept about the same as usual. The final report will be interpreted and signed by a sleep physician. The completed physician report will then be placed in the patient medical record. Therapy (cm H2O) 0 TIB (min.) 388.5 TST (min.) 227.0 Sleep Onset (min.) 7.5 REM Onset From Sleep (min.) 167.5 Sleep Efficiency % 58 Wakefulness (%) 42 Wakefulness (min.) 161.5 NREM 1 (%) 25 NREM 1 (min.) 56.0 NREM 2 (%) 49 NREM 2 (min.) 111.5 NREM 3 (%) 2 NREM 3 (min.) 3.5 REM (%) 25 REM (min.) 56.0 # Arousals 90 Arousal Index 24 # Snore 1,160 Snore Index 306.6 AHI 57.4 AHI Supine 57 AHI Non-Supine N/A NREM AHI 55.1 REM AHI 64.3 RDI 57.6 # Obstructive Apnea 23 # Central Apnea 17 # Mixed Apnea 12 # Hypopneas 165 RERAs 1 Total Respiratory Events 218 Time Below SpO2 89% (min.) 124.8 Mean NREM SpO2 (%) 89 Mean REM SpO2 (%) 81 Mean Sleep SpO2 (%) 87 Min NREM SpO2 (%) 64 Min REM SpO2 (%) 61 Position Supine (min.) 388.5 Position Non-supine (min.) 0.0 LM Index Sleep 67.1 LM Index NREM 74.0 LM Index REM 46.1 Mean Heart Rate (bpm) 77 Min Heart Rate (bpm) 50
--- NOTE | 2017-04-18 14:15 | POLYSOMNOGRAPH REPORT ---
CLINICAL DATA: A 71-year-old male with BMI of [address] Kirsten Perez and Dr. Langley for a sleep study. He had a home sleep apnea test in the past and did not trust the results. He apparently could not tolerate CPAP or BiPAP. He states he does not think he has sleep apnea. His [place] sleepiness score is 0. SLEEP ARCHITECTURE: Total sleep period was 381 minutes. Total sleep time was 227 minutes divided between 171 minutes of non-REM sleep and 56 minutes of REM sleep. Sleep onset latency was 7.5 minutes. REM latency was 167.5 minutes. Sleep efficiency was 58%. Wake after sleep onset was 154 minutes. Sleep consisted of stage N1 25%, stage N2 49%, stage N3 2%, and REM 25%. AROUSAL DATA: Ninety arousals were recorded for an index of 24 per hour. Thirty-four were due to respiratory events. Thirty-five were due to PLM events. PLM DATA: 254 limb movements during sleep were noted for an index of 67.1 per hour with arousal index of 9.5 per hour. RESPIRATORY DATA: Very severe sleep apnea was documented. The AHI was 57.4. There were 17 central, 23 obstructive and 12 mixed apneic episodes. The longest apneic episode was 55.6 seconds. There were 165 hypopneic episodes with a mean duration of 20.2 seconds. OXIMETRY DATA: Nocturnal hypoxemia was seen. Oxygen yessenia was 61%. Mean saturation was 88%. Time below 89% was 135 minutes. EKG: Heart rates ranged from 50-107 beats per minute. STAVE LOG CUT OFF SAW OPERATOR'S COMMENTS: The patient slept supine. PLMs were noted. Snoring was moderate, rated 3 on a scale of 1-5. IMPRESSION: Severe sleep apnea/hypopnea with nocturnal hypoxemia with an AHI of 57.4 and oxygen yessenia 61%. RECOMMENDATIONS: The patient may benefit from a repeat sleep study with CPAP or use of auto CPAP. Clinical correlation is needed. CHRISTOPHE
== END | disposition home or self-care (01) ==
LOC: C.NEUR 21:00
PROVIDERS: ATTEND Internal Medicine
DX: G47.33 Obstructive sleep apnea (adult) (pediatric) (principal)

== ENCOUNTER → 2017-04-18 | Outpatient (CLI) | payer OTHER ==
--- NOTE | 2017-04-18 18:10 | DIAGNOSTIC IMAGING REPORT ---
MRI OF THE LEFT KNEE CLINICAL HISTORY: Left knee pain. COMPARISON STUDY: Radiographs of left knee dated 10/25/2016. TECHNIQUE: MRI of the left knee was performed utilizing proton density, T1, and T2-weighted sequences in the axial, sagittal, coronal planes. IV contrast was not administered for this examination. FINDINGS: Menisci: There is a large bucket-handle type tear involving the posterior horn of the medial meniscus. The fragment is flipped centrally into the joint space, best seen on sagittal image #11. There is a large complex tear involving the body and posterior horn of the lateral meniscus. No flipped fragment is seen. The meniscus is laterally extruded. Ligaments: The anterior and posterior cruciate ligaments are intact. The medial and lateral collateral ligaments are within normal limits. Extensor mechanism: There is tendinopathy involving the quadriceps tendon at its insertion with mild partial-thickness tearing of the posterior fibers and surrounding soft tissue edema. The patellar tendon appears intact. Hoffa's fat pad is normal in appearance. Articular cartilage and bone: There is mild chondromalacia patella, with approximately 50% thinning of the articular cartilage along the medial facet. There is associated subchondral marrow edema. Ventricular cartilage in the medial and lateral compartments appears maintained. Marginal osteophytes are noted. There is no MRI evidence of fracture. Joint effusion: There is only trace joint fluid. Soft tissues: There is generalized atrophy of the regional musculature. Mild nonspecific edema is seen within the gastrocnemius musculature. Venous varicosities are present along the lateral aspect of the knee. IMPRESSION: 1. There is a large bucket-handle type tear involving the posterior horn of the medial meniscus. The fragment is flipped centrally into the joint space. 2. There is a large complex tear involving the body and posterior horn of the lateral meniscus. 3. There is tendinopathy of the quadriceps tendon with partial thickness tearing of the posterior fibers at the insertion and overlying soft tissue edema. 4. The cruciate ligaments and the collateral ligaments are intact. 5. Mild arthritic change as above. 6. There is mild edema within the gastrocnemius musculature of indeterminant significance. Clinical correlation will be required. Electronically signed by: Oniel Atkinson M.D. 04/18/2017 6:09 PM Dictated Date/Time: 04/18/2017 6:00 PM
== END | disposition home or self-care (01) ==
LOC: C.MRI 16:31
PROVIDERS: ATTEND Orthopaedic Surgery Orthopaedic Surgery of the Spine
DX: S83.212A Bucket-handle tear of medial meniscus, current injury, left knee, initial encounter (principal); S83.272A Complex tear of lateral meniscus, current injury, left knee, initial encounter; X58.XXXA Exposure to other specified factors, initial encounter

== ENCOUNTER → 2017-04-30 | Outpatient (CLI) | payer OTHER ==
[2017-04-30 15:39] LABS: BASO % 0.3 %; BASO ABS # 0.02 K/uL (0-0.2); COMPLETE YES; EOS % 3.7 %; HEMATOCRIT 44.1 % (42-52); LYMPH % 25.5 %; LYMPH ABS # 1.52 K/uL (1.2-3.4); MEAN CELL VOLUME 91.5 fL (80-100); MEAN CORPUSCULAR HEMOGLOBIN 29.3 pg (25-34); MEAN PLATELET VOLUME 10.4 fL (7.4-10.4); MONO % 7.2 %; NEUT % 63.3 %; PLATELET COUNT 180 K/uL (130-400); RED BLOOD COUNT 4.82 M/uL (4.7-6.1); WHITE BLOOD COUNT 5.96 K/uL (4.8-10.8)
[2017-04-30 15:46] LABS: BLOOD UREA NITROGEN 19 mg/dl (7-18); BUN/CREATININE RATIO 25.4 (10-20); CALCIUM 8.8 mg/dl (8.5-10.1); CARBON DIOXIDE 31 mmol/L (21-32); CHLORIDE 102 mmol/L (98-107); CREATININE 0.74 mg/dl (0.60-1.40); GLUCOSE 97 mg/dl (70-99); POTASSIUM 4.4 mmol/L (3.5-5.1); SODIUM 137 mmol/L (136-145)
== END | disposition home or self-care (01) ==
LOC: C.LABBC 11:18
PROVIDERS: ATTEND Orthopaedic Surgery
DX: S83.242D Other tear of medial meniscus, current injury, left knee, subsequent encounter (principal); X58.XXXD Exposure to other specified factors, subsequent encounter

== ENCOUNTER 2017-05-13 04:54 | Day surgery (SDC) | payer OTHER ==
--- NOTE | 2017-05-08 07:57 | HISTORY & PHYSICAL EXAMINATION ---
DATE OF ADMISSION: 05/13/2017 CHIEF COMPLAINT: Meniscal tear of the left knee. HISTORY OF PRESENT ILLNESS: Fly is a 71-year-old male who has been complaining of chronic ongoing left knee and leg pain. He has had injections in his knees without any relief. He has had intra-articular hip injection as well. He had an MRI of the lumbar spine which showed stenosis at multiple levels and eventually underwent a lumbar laminectomy back in February by Dr. Smith. Unfortunately, he is still having leg pain. More of his pain seems to be located around his knee. He then had an MRI of his knee and his MRI does show a meniscus tear. His knee and leg pain continue to cause him significant limitations. He has elected to proceed with a knee arthroscopy to see if that will take care of some of his symptoms. PAST MEDICAL HISTORY: Significant for asthma. PAST SURGICAL HISTORY: Significant for 2 prior lumbar decompression surgeries and a thyroidectomy. ALLERGIES: None. MEDICATIONS: Claritin and Flomax for BPH, Flonase 2 sprays daily, albuterol 2 puffs as needed, Dulera inhaler as needed and Percocet as needed for pain. FAMILY HISTORY: Noncontributory. SOCIAL HISTORY: He denies any tobacco, alcohol or IV drug use. He is . PHYSICAL EXAMINATION: GENERAL: He is awake, alert and oriented x3. He is in no apparent distress. He is very pleasant. HEENT: Pupils are equal, round and reactive to light. Extraocular motion intact. Oral mucosa is pink and moist. HEART: Regular rate per radial pulse. LUNGS: Ebony symmetrically bilaterally with no audible breath sounds. ABDOMEN: Soft, nontender, nondistended. MUSCULOSKELETAL: On physical examination of the knee he has a trace effusion on exam today. He has good motion from 0-120 degrees. He has no instability. He has severe tenderness to palpation along the medial joint line and a positive medial Jonah's test. He has pain in his range of motion of his hip. IMAGING DATA: MRI of the knee shows a large posterior medial meniscus tear consistent with a bucket handle type tear. There is mild osteoarthritis of the knee. IMPRESSION: Meniscal tear of the left knee. PLAN: Will proceed with a left knee arthroscopy to include partial medial and/or lateral meniscectomy. Postoperatively, he will be placed on crutches and given some oral pain medications and discharged to home.
[2017-05-08 08:19] VITALS: BMI 42.0
[~2017-05-13] VITALS: Ht 180.3 cm; Wt 136.5 kg
[~2017-05-13 04:54] MED LIST changes: -CLR10 PO; -FLUT0.15 NAE; -MOME200A INH; -OXYC-57 PO
[2017-05-13 05:24] VITALS: BP 162/99; PULSE 73; TEMP 36.5; O2SAT 93; Ht 180.3 cm; Wt 136.5 kg
[2017-05-13] MEDS ORDERED: LACTATED RINGER'S 1000ML 1,000 ML IV SCH (06:00)
[2017-05-13] MEDS ORDERED: LACTATED RINGER'S 1000ML IV SCH (06:00)
[2017-05-13] MEDS ORDERED: CEFAZOLIN 3000MG IV PUSH 15 ML IV SCH (06:00)
[2017-05-13] MEDS ORDERED: FENTANYL CITRATE INJ 50 MCG/1 ML 2 ML VIAL ONE (06:18)
[2017-05-13] MEDS ORDERED: ONDANSETRON INJ 2 MG/ML 2 ML VIAL ONE (06:18)
[2017-05-13] MEDS ORDERED: LIDOCAINE HCL 2% 2 ML VIAL (20MG/ML) ONE (06:18)
[2017-05-13] MEDS ORDERED: SUCCINYLCHOLINE CHLORIDE 20 MG/ML 10 ML VIAL IV ONE (06:18)
[2017-05-13] MEDS ORDERED: DEXAMETHASONE SOD INJ 4 MG/ML VIAL ONE (06:18)
[2017-05-13] MEDS ORDERED: PROPOFOL IV EMULSION 10 MG/ML 20 ML VIAL IV ONE ×2 (06:18→07:29)
[2017-05-13] MEDS ORDERED: KETOROLAC TROMETHAMINE 30 MG/ML VIAL ONE (06:31)
[2017-05-13] MEDS ORDERED: MoRPHine SULFATE 4 MG/ML 1 ML CARP\\VIAL ONE (06:32)
[2017-05-13] MEDS ORDERED: EpINEphrine HCL INJ 1 MG/ML 1ML SYRINGE ONE (07:11)
[2017-05-13] MEDS ORDERED: GLYCOPYRROLATE INJ 0.2 MG/ML VIAL ONE (07:23)
[2017-05-13] MEDS ORDERED: ROPIVACAINE 0.5% 5 MG/ML 30 ML VIAL INSTIL ONE (07:32)
[2017-05-13] MEDS ORDERED: HYDR-5688 PO (07:55)
--- NOTE | 2017-05-13 07:55 | [facility] Post Operative Brief Note ---
Immediate Operative Summary Operative Date May 13, 2017. Pre-Operative Diagnosis Meniscal tear of the left knee Post-Operative Diagnosis medial and lateral meniscal tear of the left knee and chondromalacia Procedure(s) Performed Left knee arthroscopy with partial medial and lateral menisectomy and chondroplasty Surgeon Dr. Genaro Arias DO [facility] Surgeon(s) Dm Jenkins PA-C Estimated Blood Loss 5ml Findings as above Specimens None per surgeon Complication(s) None Disposition Recovery Room / PACU
[2017-05-13] MEDS ORDERED: SODIUM CHLORIDE 0.9% 1000ML 1,000 ML IV SCH (07:56)
--- NOTE | 2017-05-13 07:56 | Discharge Instructions ---
Discharge Instructions Date of Service May 13, 2017. Admission Reason for Admission: Left Knee Acute Medial Meniscus Tear, Pain Discharge Discharge Diagnosis / Problem: SAME ABOVE Discharge Goals Goal(s): Decrease discomfort, Improve function Activity Recommendations Activity Limitations: as noted below Lifting Limitations: gradually increase as tolerated Exercise/Sports Limitations: gradually increase as tolerated Shower/Bathe: tomorrow . Instructions / Follow-Up Instructions / Follow-Up MEDICATIONS: * Resume previous medications unless instructed otherwise by your surgeon. * Always take pain medication on a full stomach or with food to avoid upset stomach. * Do not drink alcohol or drive while taking narcotics. * Ibuprofen or Tylenol may be taken if narcotic not needed. SPECIAL CARE INSTRUCTIONS: __ None _X_ Keep extremity elevated and iced x 48 hours; apply ice 20-30 minutes 8-10 times/day. May remove at night. _X_ Crutches _X_ May discard when able __ Brace/Post-op shoe __ 24 hrs/day __ Remove at night _X_ Dressing __ Maintain until seen in office, may shower with plastic over site _X_ Remove dressings in 24-48 hours and then may shower _X_ Cover incisions with band-aids after showering __ Do not remove steri-strips Call physician if chills or temperature rises above 102 degrees or pain unrelieved by prescribed pain medications. Office [phone] Current Hospital Diet Patient's current hospital diet: Discharge Diet Recommended Diet: Regular Diet Fluid Restriction: None Procedures Procedures Performed: Left knee arthroscopy with partial medial and lateral menisectomy and chondroplasty Pending Studies Studies pending at discharge: no Work Instructions Return To Work: after follow-up Medical Emergencies . Who to Call and When: Medical Emergencies: If at any time you feel your situation is an emergency, please call 911 immediately. . Non-Emergent Contact Non-Emergency issues call your: Primary Care Provider Call Non-Emergent contact if: you have a fever, temperature is above 101.5 . "Provider Documentation" section prepared by Jewel Jenkins. . VTE Core Measure Inpt VTE Proph given/why not?: Treatment not indicated
[2017-05-13] MEDS ORDERED: HYDROmorphone INJ 2 MG/ML SYR/VIAL IV PRN (08:00)
[2017-05-13] MEDS ORDERED: MEPERIDINE HCL 25 MG/ML CARP IV PRN (08:00)
[2017-05-13] MEDS ORDERED: ONDANSETRON INJ 2 MG/ML 2 ML VIAL IV PRN ×2 (08:00)
[2017-05-13] MEDS ORDERED: LABETALOL HCL IV 5 MG/ML 20ML IV PRN (08:00)
[2017-05-13] MEDS ORDERED: FLUMAZENIL 0.1 MG/1 ML 10 ML VIAL IV PRN (08:00)
[2017-05-13] MEDS ORDERED: EpHEDrine SULFATE INJ 50 MG/ML AMP IV PRN (08:00)
[2017-05-13] MEDS ORDERED: NALOXONE HCL 0.4 MG/1 ML VIAL/CARP IV PRN (08:00)
[2017-05-13] MEDS ORDERED: FENTANYL CITRATE INJ 50 MCG/1 ML 2 ML VIAL IV PRN (08:00)
[2017-05-13] MEDS ORDERED: ATROPINE SULFATE 0.1 MG/ML 5ML SYR IV PRN (08:00)
[2017-05-13] MEDS ORDERED: PHENYLEPHRINE 100MCG/ML 5ML SYR IV PRN (08:00)
[2017-05-13] MEDS ORDERED: HYDROCODONE/ACETAMIN 5/325MG TAB PO PRN ×2 (08:00)
--- NOTE | 2017-05-13 08:20 | OPERATIVE REPORT ---
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 POSTOPERATIVE DIAGNOSIS: Same. PROCEDURE: Left knee diagnostic arthroscopy with medial and lateral partial meniscectomies and chondroplasty. SURGEON: Dr. Genaro Arias. COLLAR TURNER: Dm Jenkins PA-C, whose assistance was necessary for positioning of the leg and closure. ANESTHESIA: General. COMPLICATIONS: None. CONDITION: Stable to PACU. INDICATIONS: Fly is a 71-year-old male who has been having an almost year long history of left knee and leg pain. He had several injections including 2 intraarticular knee injections and intraarticular hip injection. Unfortunately none of the injections helped at all with his pain. He underwent a lumbar laminectomy back in February for his leg pain and although he has recovered well from that he still has a lot of pain located directly in his knee. MRI of his knee does show medial and lateral meniscus tears and some chondromalacia. After failing conservative treatment, he elected to undergo arthroscopy. On 05/13/2017 he arrived at [facility] for the above procedure. He was seen in the preoperative holding area and the operative extremity was identified and signed. He was given preoperative antibiotics and taken back to the operating room, laid on the table in supine position and put under general anesthesia. The left knee was then prepped and draped in sterile fashion. Time-out was done and the patient and operative extremity was properly identified. The scope was placed into a lateral parapatellar portal. Diagnostic arthroscopy showed some synovitis in the suprapatellar pouch. There was some grade 2 chondromalacia on the undersurface of the patella. The scope was brought into the medial compartment. There was some loose grade 2 chondromalacia on the lateral aspect of the distal medial femoral condyle. There was some chondrocalcinosis of the medial meniscus. There was some tearing of the posterior aspect of the medial meniscus. A medial parapatellar portal was made under direct visualization. A shaver was used to do a gentle chondroplasty of the distal medial femoral condyle to remove all loose cartilage fragments and a shaver was also used to complete a partial meniscectomy of the torn posterior portion of the meniscus. The scope was then brought into the trochlea. ACL and PCL were intact. The scope was then brought into the lateral compartment. There was significant chondrocalcinosis and tearing of the posterior aspect of the lateral meniscus. Pictures were taken. A shaver was used to remove all the unstable meniscal fragments back to stable margins. There was some grade 3 and 4 chondral changes off the center of the distal lateral femoral condyle. A shaver was used to remove any loose cartilage fragments. The scope was then placed in the medial parapatellar portal. Repeat diagnostic arthroscopy showed no additional pathology. The scope was brought in the posterior aspect of the knee and I saw no displacement of the meniscal fragments and no additional pathology posteriorly. The knee was then brought into full extension. A shaver was used to do a gentle chondroplasty on the undersurface of the patella and a gentle synovectomy of the suprapatellar pouch. The knee was then irrigated and arthroscopic instruments were removed. Portal sites were closed with 3-0 nylon. The knee was then injected with 30 mL of ropivacaine with epinephrine, Toradol and morphine. He was then placed in a soft compressive dressing, extubated, and taken to the postanesthesia care unit in stable condition and tolerated the procedure well. I attest to the content of the Intraoperative Record and any orders documented therein. Any exception s are noted below.
--- NOTE | 2017-05-13 08:37 | Anesthesiology Progress Note ---
Anesthesia Post Op Note Date & Time May 13, 2017 at 08:37 Vital Signs Pain Intensity: 3 Vital Signs Past 12 Hours Date Time Temp Pulse Resp B/P (MAP) Pulse Ox O2 Delivery O2 Flow Rate FiO2 05/13/17 08:33 36.3 05/13/17 08:32 152/87 05/13/17 08:28 73 18 05/13/17 08:28 74 18 98 05/13/17 08:27 139/84 05/13/17 08:23 76 18 05/13/17 08:23 75 18 91 05/13/17 08:22 137/81 05/13/17 08:18 75 16 05/13/17 08:18 75 16 96 05/13/17 08:17 148/74 05/13/17 08:13 74 16 05/13/17 08:13 73 16 100 05/13/17 08:12 139/82 05/13/17 08:08 70 14 05/13/17 08:08 71 14 99 05/13/17 08:07 135/77 05/13/17 08:03 73 14 05/13/17 08:03 72 14 99 05/13/17 08:02 136/77 05/13/17 07:59 141/79 05/13/17 07:53 36.9 81 16 148/84 99 7 05/13/17 05:24 36.5 73 18 162/99 (120) 93 Room Air Notes Mental Status: alert / awake / arousable, participated in evaluation Pt Amnestic to Procedure: Yes Nausea / Vomiting: adequately controlled Pain: adequately controlled Airway Patency, RR, SpO2: stable & adequate BP & HR: stable & adequate Hydration State: stable & adequate Anesthetic Complications: no major complications apparent
[2017-05-13 08:40] VITALS: BP 135/73; PULSE 72; TEMP 36.8; O2SAT 93
[2017-05-13] MEDS ORDERED: NURSING VERBAL MED ORDER ONE (09:00)
[2017-05-13 09:10] VITALS: BP 141/75; PULSE 74; O2SAT 94
[2017-05-13 09:40] VITALS: BP 160/76; PULSE 77; TEMP 36.6; O2SAT 94
[2017-06-21] MEDS ORDERED: LISI-726 PO (17:25)
== END 2017-05-13 10:05 | disposition home or self-care (01) ==
LOC: C.ACU 04:54
PROVIDERS: ATTEND Orthopaedic Surgery
DX: M23.222 Derangement of posterior horn of medial meniscus due to old tear or injury, left knee (principal); M23.262 Derangement of other lateral meniscus due to old tear or injury, left knee; M94.262 Chondromalacia, left knee; J45.909 Unspecified asthma, uncomplicated; E66.01 Morbid (severe) obesity due to excess calories; G47.33 Obstructive sleep apnea (adult) (pediatric)

== ENCOUNTER 2017-06-21 16:48 | Emergency (ER) | payer OTHER ==
[~2017-06-21] VITALS: Ht 177.8 cm; Wt 138.4 kg
[~2017-06-21 16:48] MED LIST changes: +HYDR-5688 PO
[2017-06-21 16:56] VITALS: TEMP 36.8; Ht 177.8 cm; Wt 138.4 kg
[2017-06-21] MEDS ORDERED: OXYCODONE HCL IR 5 MG TAB (IMMEDIATE RELEASE) PO STA (17:15)
[2017-06-21] MEDS ORDERED: KETOROLAC TROMETHAMINE 30 MG/ML VIAL IV STA (17:15)
[2017-06-21 17:23] VITALS: O2SAT 98
[2017-06-21] MEDS ORDERED: CALC500C3 PO (17:25)
[2017-06-21] MEDS ORDERED: MONT1TAB3 PO (17:25)
[2017-06-21] MEDS ORDERED: FLUT0.15 NAE (17:25)
[2017-06-21] MEDS ORDERED: ASPI81TA28 PO (17:25)
[2017-06-21] MEDS ORDERED: FINA5TAB PO (17:25)
[2017-06-21] MEDS ORDERED: LSN20 PO (17:25)
[2017-06-21] MEDS ORDERED: IBUP-1050 PO (17:26)
[2017-06-21 17:31] LABS: BASO % 0.1 %; BASO ABS # 0.01 K/uL (0-0.2); EOS % 3.4 %; EOS ABS # 0.23 K/uL (0-0.5); HEMOGLOBIN 13.9 g/dL (14.0-18.0); IG# 0.01 K/uL (0.00-0.02); LYMPH ABS # 2.12 K/uL (1.2-3.4); MEAN CORPUSCULAR HEMOGLOBIN 29.4 pg (25-34); MEAN CORPUSCULAR HGB CONC 33.1 g/dl (32-36); MEAN PLATELET VOLUME 10.5 fL (7.4-10.4); MONO % 6.9 %; MONO ABS # 0.47 K/uL (0.11-0.59); NEUT % 58.5 %; PLATELET COUNT 149 K/uL (130-400); RED CELL DISTRIBUTION WIDTH CV 13.8 % (11.5-14.5); WHITE BLOOD COUNT 6.84 K/uL (4.8-10.8)
[2017-06-21 17:39] LABS: PTT PATIENT 27.3 SECONDS (21.0-31.0)
[2017-06-21 17:48] LABS: CALCIUM 8.5 mg/dl (8.5-10.1); CREATININE 0.72 mg/dl (0.60-1.40); POTASSIUM 4.3 mmol/L (3.5-5.1)
--- NOTE | 2017-06-21 18:27 | DIAGNOSTIC IMAGING REPORT ---
L FEMUR 2 VIEWS ROUTINE CLINICAL HISTORY: Posterior left thigh pain. COMPARISON: Left hip radiographs October 25, 2016. FINDINGS: Incidental note is made of scrotal surgical clips. No acute fracture or suspicious osseous lesion is present. Severe left hip joint space narrowing has progressed since exam of October 25, 2016. Subchondral lucency and sclerosis of the left femoral head is noted. IMPRESSION: 1. No acute fracture of the left femur. 2. Interval progression of severe left hip joint space narrowing since exam of October 25, 2016 consistent with severe osteoarthritis. 3. Subchondral lucency and sclerosis of the left femoral head which raises the possibility of avascular necrosis. Electronically signed by: Jorje Vargas M.D. 06/21/2017 6:26 PM Dictated Date/Time: 06/21/2017 6:23 PM
--- NOTE | 2017-06-21 19:23 | DIAGNOSTIC IMAGING REPORT ---
LEFT LOWER EXTREMITY VENOUS DOPPLER CLINICAL HISTORY: Left thigh pain. Evaluate for deep venous thrombus. COMPARISON STUDY: Bilateral lower extremity venous Doppler Sep 28 2016. TECHNIQUE: Sonography of the deep venous system of the left lower extremity was performed. Compression and augmentation were evaluated. FINDINGS: The left common femoral, superficial femoral and popliteal veins were compressible. Augmentation was normal. Flow was shown within the deep calf vessels. IMPRESSION: No evidence of deep venous thrombus within the left lower extremity. Electronically signed by: Jorje Vargas M.D. 06/21/2017 7:22 PM Dictated Date/Time: 06/21/2017 7:21 PM
[2017-06-21 19:45] VITALS: BP 167/97; PULSE 74; O2SAT 96
--- NOTE | 2017-06-21 23:27 | EMERGENCY ROOM VISIT NOTE ---
History Report prepared by Inder: Faviola Mckeon Under the Supervision of: Dr. Byron Cedeño M.D. First contact with patient: 17:02 Chief Complaint: HYPERTENSION Stated Complaint: BACK OF LEG PAIN, HIGH BP History of Present Illness The patient is a 72 year old male who presents to the Emergency Room with complaints of back left thigh pain beginning one year ago. Today he felt weak and "skaky" because of the pain. His blood pressure was noted to be high and so his was concerned and brought him in. He feels sharp pain and ambulating is a worsening factor. He also has associated numbness described as "pins and needles" since the summer in his left foot. The patient denies any chest pain, fever, SOB, diarrhea, or abdominal pain. He currently takes his blood pressure medication every day. He went to a doctor on October where he received one injection in his left knee but it did not alleviate his pain. The patient reports he then went to the doctor an additional two times and received two more shots in his left leg and left knee respectively but they also did not alleviate the pain. He had back surgery in December which did not help his pain. He is taking ibuprofen for his pain and last took 400 mg at about 1400 today. Source of History: patient Onset: one year ago Position: leg (back of left leg) Quality: sharp Timing: constant Modifying Factors (Worsening): movement Associated Symptoms: + numbness, No fevers, No chest pain, No SOB, No abdominal pain, No diarrhea Review of Systems See HPI for pertinent positives & negatives. A total of 10 systems reviewed and were otherwise negative. Past Medical & Surgical Medical Problems: (1) Lumbar stenosis Family History Patient reports no known family medical history. Social History Smoking Status: Never Smoker Alcohol Use: none Drug Use: none Marital Status: Housing Status: lives with family Occupation Status: employed Current/Historical Medications Scheduled Aspirin (Aspirin Ec), 81 MG PO DAILY Finasteride (Proscar), 5 MG PO DAILY Lisinopril (Lisinopril), 20 MG PO DAILY Scheduled PRN Albuterol Sulfate (Proventil Hfa), 2 PUFF INH Q4 PRN for SOB/Wheezing Calcium Carbonate (Tums), 1 DOSE PO DIRECTED PRN for Indigestion Fluticasone Propionate (Nasal) (Flonase Allergy Relief), 2 SPRAYS PADMINI DAILY PRN for Seasonal Allergies Ibuprofen (Advil), 200-600 MG PO Q4H PRN for Pain Montelukast Sodium (Singulair), 10 MG PO DAILY PRN for Seasonal Allergies Naproxen (Aleve), 220 MG PO DIRECTED PRN for Pain Allergies Coded Allergies: Dust (Verified Allergy, Intermediate, CONGESTION, "ASTHMA LIKE" SYMPTOMS, 06/21/17) Ragweed (Verified Allergy, Intermediate, CONGESTION, "ASTMA LIKE" SYMPTOMS , 06/21/17) Physical Exam Vital Signs Date Time Temp Pulse Resp B/P (MAP) Pulse Ox O2 Delivery O2 Flow Rate FiO2 06/21/17 19:45 74 20 167/97 96 06/21/17 18:42 69 20 157/86 96 Room Air 06/21/17 17:25 84 06/21/17 17:23 98 Room Air 06/21/17 16:56 36.8 80 20 173/84 96 Room Air Physical Exam Constitutional: Vital signs reviewed. Eyes: Pupils are equal round reactive to light. Conjunctiva are noninjected. ENT: Pharynx is clear without erythema or exudate. Mucous membranes are moist. Neck supple without meningeal signs. Respiratory: Clear to auscultation bilaterally. Breath sounds are equal bilaterally. Cardiovascular: Regular rate and rhythm. No rubs or gallops. GI: Soft, nondistended and nontender. Bowel sounds are present. Musculoskeletal: No swelling discoloration or erythema to the left leg. Normal dorsalis pedis pulse. No midline tenderness to the lumbar spine Integumentary: No cyanosis. Neurological: The patient is awake and alert. No motor or sensory deficits in the left lower extremity. Psychiatric: Normal affect. Medical Decision & Procedures ER Provider Diagnostic Interpretation: Radiology results as stated below per my review and the radiologist's interpretation: LEFT LOWER EXTREMITY VENOUS DOPPLER CLINICAL HISTORY: Left thigh pain. Evaluate for deep venous thrombus. COMPARISON STUDY: Bilateral lower extremity venous Doppler Sep 28 2016. TECHNIQUE: Sonography of the deep venous system of the left lower extremity was performed. Compression and augmentation were evaluated. FINDINGS: The left common femoral, superficial femoral and popliteal veins were compressible. Augmentation was normal. Flow was shown within the deep calf vessels. IMPRESSION: No evidence of deep venous thrombus within the left lower extremity. Electronically signed by: Jorje Vargas M.D. 06/21/2017 7:22 PM Dictated Date/Time: 06/21/2017 7:21 PM L FEMUR 2 VIEWS ROUTINE CLINICAL HISTORY: Posterior left thigh pain. COMPARISON: Left hip radiographs October 25, 2016. FINDINGS: Incidental note is made of scrotal surgical clips. No acute fracture or suspicious osseous lesion is present. Severe left hip joint space narrowing has progressed since exam of October 25, 2016. Subchondral lucency and sclerosis of the left femoral head is noted. IMPRESSION: 1. No acute fracture of the left femur. 2. Interval progression of severe left hip joint space narrowing since exam of October 25, 2016 consistent with severe osteoarthritis. 3. Subchondral lucency and sclerosis of the left femoral head which raises the possibility of avascular necrosis. Electronically signed by: Jorje Vargas M.D. 06/21/2017 6:26 PM Dictated Date/Time: 06/21/2017 6:23 PM Laboratory Results 06/21/17 17:20 Red Blood Count 4.72, Mean Corpuscular Volume 89.0, Mean Corpuscular Hemoglobin 29.4, Mean Corpuscular Hemoglobin Concent 33.1, Mean Platelet Volume 10.5, Neutrophils (%) (Auto) 58.5, Lymphocytes (%) (Auto) 31.0, Monocytes (%) (Auto) 6.9, Eosinophils (%) (Auto) 3.4, Basophils (%) (Auto) 0.1, Neutrophils # (Auto) 4.00, Lymphocytes # (Auto) 2.12, Monocytes # (Auto) 0.47, Eosinophils # (Auto) 0.23, Basophils # (Auto) 0.01 06/21/17 17:20 Test 06/21/17 17:20 White Blood Count 6.84 K/uL (4.8-10.8) Red Blood Count 4.72 M/uL (4.7-6.1) Hemoglobin 13.9 g/dL (14.0-18.0) Hematocrit 42.0 % (42-52) Mean Corpuscular Volume 89.0 fL (80-100) Mean Corpuscular Hemoglobin 29.4 pg (25-34) Mean Corpuscular Hemoglobin Concent 33.1 g/dl (32-36) Platelet Count 149 K/uL (130-400) Mean Platelet Volume 10.5 fL (7.4-10.4) Neutrophils (%) (Auto) 58.5 % Lymphocytes (%) (Auto) 31.0 % Monocytes (%) (Auto) 6.9 % Eosinophils (%) (Auto) 3.4 % Basophils (%) (Auto) 0.1 % Neutrophils # (Auto) 4.00 K/uL (1.4-6.5) Lymphocytes # (Auto) 2.12 K/uL (1.2-3.4) Monocytes # (Auto) 0.47 K/uL (0.11-0.59) Eosinophils # (Auto) 0.23 K/uL (0-0.5) Basophils # (Auto) 0.01 K/uL (0-0.2) RDW Standard Deviation 45.0 fL (36.4-46.3) RDW Coefficient of Variation 13.8 % (11.5-14.5) Immature Granulocyte % (Auto) 0.1 % Immature Granulocyte # (Auto) 0.01 K/uL (0.00-0.02) Prothrombin Time 10.6 SECONDS (9.0-12.0) Prothromb Time International Ratio 1.0 (0.9-1.1) Activated Partial Thromboplast Time 27.3 SECONDS (21.0-31.0) Partial Thromboplastin Ratio 1.1 Anion Gap 3.0 mmol/L (3-11) Est Creatinine Clear Calc Drug Dose 133.9 ml/min Estimated GFR () 109.5 Estimated GFR (Non- 94.5 BUN/Creatinine Ratio 21.4 (10-20) Calcium Level 8.5 mg/dl (8.5-10.1) Laboratory results as reviewed by me. Medications Administered Medications (Trade) Dose Ordered Sig/Marilee Route Start Time Stop Time Status Last Admin Dose Admin Oxycodone HCl (Roxicodone Immediate Rel Tab) 5 mg NOW STAT PO 06/21/17 17:15 06/21/17 17:17 DC 06/21/17 17:29 5 MG Ketorolac Tromethamine (Toradol Inj) 10 mg NOW STAT IV 06/21/17 17:15 06/21/17 17:17 DC 06/21/17 17:29 10 MG ECG Indication: other (Hypertension ) Rate (beats per minute): 84 Rhythm: sinus rhythm Findings: PVC, no acute ischemic change ED Course 1710: The patient was evaluated in room B11. A complete history and physical exam was performed. 1714: Ordered Toradol Inj 10 mg IV Oxycodone HCl 5 mg PO 1929: The patient's blood pressure is 151/90 and says he is feeling better. I reviewed his test details with him and he denied any medications to go home with. 1930: Upon reevaluation, the patient appeared to have improvement of his symptoms. I discussed tonight's findings with him. He verbalized agreement of the treatment plan. He was discharged home. Medical Decision This is a 72-year-old male who presents with left thigh pain for one year. Differential diagnosis includes DVT, superficial phlebitis, pathologic fracture , radicular pain, arthritis. I did perform a limited focused review of portions of the patient's old chart on the electronic medical record. The patient had an arthroscopy in his left knee by Dr. Arias May 13, 2017 I did evaluate the patient as noted above. He is presenting with pain in his left thigh for a year. He has had significant workup for this including MRI of his back, back surgery, knee surgery. Today his pain got worse and this made him feel shaky and weak. They took his blood pressure was elevated and so he came in for evaluation. IV access was established. The patient was placed on a continuous rn cardiac. I did treat him with Toradol IV and oxycodone orally. I did order and personally review the patient's 12-lead EKG and left femur x-rays as described above. I did order and review the patient's blood work as noted in the electronic medical record. His white blood cell count is not elevated. Labs are unremarkable. I did order a Doppler ultrasound of the left leg. I did review the images myself as well as the radiology report as described above. There is no evidence of DVT. I did reassess the patient. He is feeling better. I did discuss the test results with the patient and his . His blood pressure is improved. At this time the cause of his pain is unclear. I did recommend he follow with his orthopedic and regular physician for further evaluation of his symptoms. I did offer to give him a short course of pain medicine but he declined. He was concerned about the possibility of developing dependence or side effects. He was discharged in good condition and given return instructions as outlined below. Medication Reconcilliation Current Medication List: was personally reviewed by me Blood Pressure Screening Patient's blood pressure: Elevated blood pressure Blood pressure disposition: Elevated BP felt to be situational Impression Primary Impression: Left leg pain Additional Impression: Hypertension Scribe Attestation The scribe's documentation has been prepared under my direct and personally reviewed by me in its entirety. I confirm that the note above accurately reflects all work, treatment, procedures, and medical decision making performed by me. Departure Information Dispostion Home / Self-Care Referrals No Doctor, Assigned (PCP) Forms HOME CARE DOCUMENTATION FORM, IMPORTANT VISIT INFORMATION, WORK / SCHOOL INSTRUCTIONS Patient Instructions My [facility] Additional Instructions You have been examined and treated today on an emergency basis only. This is not a substitute for, or an effort to provide, complete comprehensive medical care. It is impossible to recognize and treat all injuries or illnesses in a single emergency department visit. It is therefore important that you follow up closely with your physician. Call as soon as possible for an appointment. Return for worsening symptoms or if you develop fever, vomiting, chest pain, shortness of breath, loss of control of your bowel or bladder, numbness or weakness to your legs, discoloration or warmth to your left thigh, or any other concerning symptoms. Problem Qualifiers Additional Impression: Hypertension Hypertension type: unspecified Qualified Codes: I10 - Essential (primary) hypertension
== END 2017-06-21 19:46 | disposition home or self-care (01) ==
LOC: C.EDB 16:51
DX: M79.605 Pain in left leg (principal); I10 Essential (primary) hypertension; M48.061 Spinal stenosis, lumbar region without neurogenic claudication; Z79.82 Long term (current) use of aspirin; Z79.899 Other long term (current) drug therapy